=== PATIENT | male | born 1985 | race Caucasian/White ===

== ENCOUNTER 2017-09-23 06:32 | Day surgery (SDC) | payer OTHER, SELFPAY ==
[2017-09-22 14:23] VITALS: BMI 25.7
[2017-09-23 06:55] VITALS: BP 131/74; PULSE 75; RESP 18; TEMP 36.5; O2SAT 96
[2017-09-23 07:13] LABS: Basophils % 0.4 % (0.1-2.0); Eosinophils # 0.3 K/mm3 (0.0-0.4); Eosinophils % 2.4 % (0.1-12.0); Hemoglobin 15.9 g/dL (14.1-18.0); Lymphocytes # 2.4 K/mm3 (0.7-4.5); Lymphocytes % 22.8 K/mm3 (10-50); Mean Corpuscular HGB Conc 34.7 g/dL (31.8-35.4); Mean Corpuscular Hemoglobin 31.3 pg (27.0-31.2); Mean Corpuscular Volume 90.4 fl (80-94); Mean Platelet Volume 7.1 fl (7.4-10.4); Monocytes # 0.6 K/mm3 (0.1-1.0); Monocytes % 5.7 % (1.7-9.3); Neutrophils # 7.3 K/mm3 (1.8-7.8); Neutrophils % 68.7 % (37.0-80.0); Platelet Count 289 K/mm3 (142-424); Red Blood Count 5.09 M/mm3 (4.60-6.20); White Blood Count 10.6 K/mm3 (4.8-10.8)
--- NOTE | 2017-09-23 07:17 | HMH.ANESCL ---
[facility] Anesthesia Checklist - Patient Identification Patient Identification: Arm Band - Structural Data Admitted From: Home Planned Operative Procedure/s: excision left ear cyst Consent for Planned Operative Procedure(s) Verified: Yes Verified Documents: Surgical Consent, History and Physical - NPO Status Verified Time NPO: 00:00 - Additional verifications Anesthesia Reactions: No - Airway Assessment C-Spine Mobility Assessed: Yes (mp2) TMJ Mobility Assessed: Yes Dentition: Dentures-good fit (upper) - Neurological Assessment Level of Consciousness: Awake, Alert - Anesthesia Plan Anesthesia Risk discussed: Yes Anesthesia Plan: Verified ASA Class: II Anesthesia Type: MAC [facility] Anesthesia HX I have reviewed the patient's past medical history: Yes Medical History: Reports:: Anxiety Denies:: Cancer, Diabetes Mellitus Type 1, Diabetes Mellitus Type 2, Internal Pacemaker, MRSA, Seizures Other Medical History: Reports: Other (smoker 1ppd). Denies: Blood Transfusion Reaction Laterality Cases: Left: Other Other Surgeries: No: Pacemaker Amputation: No Fractures: No *Family Hx:: Cancer, Diabetes, Heart Attack, Stroke
[2017-09-23 08:00] VITALS: BP 107/64; BP 114/71; PULSE 81; RESP 20; TEMP 36.7; O2SAT 95; O2SAT 97
[2017-09-23 08:30] VITALS: BP 126/83; PULSE 76; RESP 18; TEMP 36.7; O2SAT 96
--- NOTE | 2017-09-23 17:21 | HMH.OPNOTE ---
Date of procedure: 09/23/17 Pre-op Diagnosis:: Epidermoid cyst 2cm left ear Post-op diagnosis:: same Procedure performed:: Excision of epidermoid cyst left ear with tissue rearrangement geometric plastic repair Surgeon:: Carlos Arcos MD TAPE FASTENER MACHINE OPERATOR:: Bk Elise Anesthesia: MAC Estimated blood loss (mL): 2 Operative findings:: cyst left ear Operative note:: The left ear was prepped and draped ,the perilesional area was infiltrated with 3 cc of 2% lidocaine containing epinephrine. The overlying skin was marked out in an ellipse. The dexter up was incised and then using tenotomy does scissors the cystic lesion was dissected and removed in toto. Bleeding was stopped with bipolar cautery, blood loss was less than 2 cc. A tissue rearrangement geometric plastic repair was done with 5-0 nylon sutures. A Dermabond dressing was applied and the patient was sent to recovery in good general condition. Condition: stable Disposition: same day Complications:: none
--- NOTE | 2017-09-23 17:24 | P.OP_ITS ---
Date of procedure: 09/23/17 Pre-op Diagnosis:: Epidermoid cyst 2cm left ear Post-op diagnosis:: same Procedure performed:: Excision of epidermoid cyst left ear with tissue rearrangement geometric plastic repair Surgeon:: Carlos Arcos MD MALT LOADER:: Bk Elise Anesthesia: MAC Estimated blood loss (mL): 2 Operative findings:: cyst left ear Operative note:: The left ear was prepped and draped ,the perilesional area was infiltrated with 3 cc of 2% lidocaine containing epinephrine. The overlying skin was marked out in an ellipse. The dexter up was incised and then using tenotomy does scissors the cystic lesion was dissected and removed in toto. Bleeding was stopped with bipolar cautery, blood loss was less than 2 cc. A tissue rearrangement geometric plastic repair was done with 5-0 nylon sutures. A Dermabond dressing was applied and the patient was sent to recovery in good general condition. Condition: stable Disposition: same day Complications:: none
== END 2017-09-23 08:30 | disposition home or self-care (01) ==
LOC: OR 06:35
PROVIDERS: Family Provider Family Medicine; PCP Family Medicine; Visit Provider Otolaryngology
PROC: (CPT 14060; principal; 2017-09-23 08:00)
DX: L72.8 Other follicular cysts of the skin and subcutaneous tissue (principal)
CPT/HCPCS: 14060; 85025; 93005; 96374; 96375

== ENCOUNTER → 2018-11-02 13:59 | Outpatient (CLI) | payer OTHER, SELFPAY ==
[2018-11-02 14:18] LABS: Basophils % 0.6 % (0.1-2.0); Eosinophils # 0.1 K/mm3 (0.0-0.4); Eosinophils % 1.2 % (0.1-12.0); Hematocrit 44.5 % (42.0-52.0); Hemoglobin 15.6 g/dL (14.1-18.0); Lymphocytes # 2.4 K/mm3 (0.7-4.5); Lymphocytes % 31.9 % (10-50); Mean Corpuscular HGB Conc 35.1 g/dL (31.8-35.4); Mean Corpuscular Hemoglobin 30.9 pg (27.0-31.2); Mean Corpuscular Volume 88.2 fl (80-94); Mean Platelet Volume 6.6 fl (7.4-10.4); Monocytes # 0.3 K/mm3 (0.1-1.0); Monocytes % 4.2 % (1.7-9.3); Neutrophils # 4.6 K/mm3 (1.8-7.8); Platelet Count 322 K/mm3 (142-424); Red Blood Count 5.05 M/mm3 (4.60-6.20); White Blood Count 7.3 K/mm3 (4.8-10.8)
[2018-11-02 14:44] LABS: Alanine Aminotransferase 71 U/L (12-78); Albumin Level 4.7 gm/dL (3.4-5.0); Albumin/Globulin Ratio 1.2 (1.1-1.8); Alkaline Phosphatase 80 U/L (46-116); Anion Gap 15.5 mEq/L (5-15); Aspartate Amino Transferase 23 U/L (15-37); Bilirubin,Total 1.2 mg/dL (0.2-1.0); Blood Urea Nitrogen 15 mg/dL (7-18); CKMB Relative Index 0.3 U/L (0-4.0); Calcium 9.4 mg/dL (8.5-10.1); Carbon Dioxide 28 mmol/L (21.0-32.0); Chloride 101 mmol/L (98-107); Creatine Kinase 190 U/L (39-308); Creatine Kinase MB 0.6 ng/ml (0.0-3.6); Creatinine,Serum 0.83 mg/dL (0.70-1.30); Estimated Glomerular Filt Rate 105 ml/min (>60); GFR (African American) 128 ML/MIN (>60); Globulin 3.9 gm/dl (1.3-3.2); Glucose 85 mg/dL (74-106); Potassium 3.5 mmoL/L (3.5-5.1); Sodium 141 mmol/L (136-145); Thyroid Stimulating Hormone 1.84 uIU/ml (0.358-3.740); Total Protein,Serum 8.6 gm/dL (6.4-8.2); Troponin I < 0.02 ng/ml (0.00-0.06)
[2018-11-04 18:09] LABS: Vitamin B12 706 pg/mL (232-1245); Vitamin D 25 Hydroxy 19.6 ng/mL (30.0-100.0)
== END ==
PROVIDERS: PCP Family Medicine; Visit Provider Physician Assistant
DX: R07.9 Chest pain, unspecified (principal); F41.1 Generalized anxiety disorder
CPT/HCPCS: 36415; 80053; 82550; 82553; 82607; 82652; 84443; 84484; 85025; 93005

== ENCOUNTER → 2019-07-18 09:16 | Outpatient (CLI) | payer OTHER, SELFPAY ==
--- NOTE | 2019-07-18 | CA_ITS ---
APPROVED REPORT Exam: Exercise Treadmill Technologist: Emmanuelle Morales Ht: 5 ft 3 in Wt: 150 lbs BSA: 1.71 m2 HR: 65 bpm BP: 124/82 mmHg Indications: Chest pain Medical History Medications: Metoprolol,,,,, Lexapro,,,,, Stress Test Details Test: Rashi HR Resting HR: 76 bpm Max Heart Rate (APMHR): 185 bpm Max HR Achieved: 159 bpm Target HR (85% APMHR): 157 bpm % of APMHR: 85 Recovery HR: 91 bpm BP Resting BP: 124.0/82.0 mmHg Max BP: 182.0/76.0 mmHg Recovery BP: 145.0/91.0 mmHg ECG Clinical Exercise duration: 09:24 min Highest Stage Achieved: Exercise capacity: 10.1 METs Stress ECG Conclusion Resting ECG: Normal sinus rhythm, right axis deviation, voltage criteria for LVH. Patient exercised 9:24 on Rashi protocol. Test stopped due to shortness of air, fatigue. Symptoms: Atypical, sharp, right sided axillary pain during exercise. Arrhythmias/Ectopy: Rare PVC ST-T Changes: [address] depression inferiorly and 0.5 mm laterally. Conclusion: Equivocal EKG changes with atypical chest pain. GXT only (no imaging). Test Summary REST . . . . . . . Sitting REST . . . . . . . Standing REST 03:59 0.0 0.0 76 . 124/ 82 . . Stage 1 01:00 10.0 1.7 103 . . . . Stage 1 02:00 10.0 1.7 111 . . . . Stage 1 03:00 10.0 1.7 117 . 156/ 80 . . Stage 2 01:00 12.0 2.5 124 . . . . Stage 2 02:00 12.0 2.5 134 . . . . Stage 2 03:00 12.0 2.5 133 . 170/ 74 . . Stage 3 . . . . . . . Shortness of Breath Stage 3 01:00 14.0 3.4 140 . . . . Stage 3 02:00 14.0 3.4 147 . . . . Stage 3 03:00 14.0 3.4 151 . 182/ 76 . . Stage 4 00:24 16.0 4.2 156 . . . Stop exercise at 09:24 RECOVERY 01:00 0.0 0.0 133 . 160/ 80 . . RECOVERY 02:00 0.0 0.0 103 . 160/ 80 . . RECOVERY 03:00 0.0 0.0 103 . 171/ 92 . . RECOVERY 04:00 0.0 0.0 98 . 162/ 88 . . RECOVERY 05:00 0.0 0.0 94 . 151/ 88 . . RECOVERY 06:00 0.0 0.0 92 . 151/ 88 . . RECOVERY 07:00 0.0 0.0 91 . 145/ 91 . . RECOVERY 07:23 0.0 0.0 94 . 145/ 91 . . Electronically signed by : Bonifacio Colon, 07/19/2019 09:17:11
--- NOTE | 2019-07-18 09:52 | CA_ITS ---
APPROVED REPORT EXAM: Comprehensive 2D, Doppler, and color-flow Echocardiogram Electric Knife Operator: Nena Anderson RDCS Ht: 5 ft 3 in Wt: 150lbs BSA: 1.71 BP: 125/82 mmHg Indications: Chest Pain 2D Dimensions LVOT 1.89 cm (M/F) 1.5-2.5 M-Mode Dimensions RVDd 2.44 cm (0.9-2.6) LVDd 4.93 cm (3.5-5.7) LVDs 3.48 cm (3.5-5.7) IVSd 0.84 cm (0.6-1.1) PWd 0.67 cm (0.6-1.1) EF (Teich) 56.10% FS 29.40% EDV (Teich) 114.40 mL ESV (Teich) 50.20 mL LV Diastology E/A Ratio 0.54 Mitral Valve MV A Velocity 47.00 (40-130 cm/s) Left Ventricle Left atrium is normal size, left ventricle is normal size, mild concentric left ventricular hypertrophy, visually estimated ejection fraction 55% with no regional wall motion abnormality. Diastolic parameters are within normal range. Right Ventricle Right atrium and right ventricular normal size and contractility. Aortic Valve Aortic valve is grossly normal, there is no aortic stenosis aortic insufficiency. Mitral Valve Mitral valve is grossly normal, there is mild mitral regurgitation. Tricuspid Valve Tricuspid valve is grossly normal, there is mild tricuspid regurgitation. Pulmonic Valve Pulmonic valve is poorly visualized. Great Vessels Aortic root is normal size. Pericardium No significant pericardial effusion noted. Conclusion 1. Normal left ventricular size, preserved left ventricular systolic function, visually estimated ejection fraction 55% with no regional wall motion abnormality, diastolic parameters are within normal range. 2. No significant pericardial effusion noted. Electronically signed by : Junior Mills, 07/20/2019 13:10:16
== END ==
PROVIDERS: PCP Family Medicine; Visit Provider Physician Assistant
DX: R07.9 Chest pain, unspecified (principal)
CPT/HCPCS: 93017; 93306

== ENCOUNTER 2024-04-19 07:56 | Outpatient (RCR) | payer BC, SELFPAY ==
--- NOTE | 2024-04-19 08:48 | HMH.PTOPEV ---
PT Outpatient Evaluation Rehab PT Outpatient Evaluation Start: 04/19/24 08:35 Freq: Status: Active Protocol: Document 04/19/24 08:35 PHORNE (Rec: 04/19/24 08:48 PHORNE [id number]) E-signed By Francesco Menendez, PT Outpatient Therapy Subjective History Subjective History This is the initial PT eval for Duoglas Joy, 38 yowm who presents with c/o vertigo x ~ 3-4 wks. He reports insidious onset of symptoms and his vertigo symptoms last for hours at a time in all positions and are associated with nausea, loss of balance, and dizziness. He reports having 2 rounds of oral steroid meds, 1 round of oral abx, and is continuing to take meclizine as prescribed. He states to medication has helped, but his symptoms persist. 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 He reports NO hx of seasonal allergies, HTN, or cardiac issues. New diagnosis of cancer in past 12 No months? Chief Complaint Other Balance Eval Oculomotor Gaze Oculomotor Gaze Nml: Vergence Saccades Cover/Uncover Cross Cover Abn: Smooth Pursuit VOR Cancellation Miscellaneous Dx PT Eval Objective Objective Pt presents with increased symptoms of vertigo to his L side with smooth pursuit, VOR cancellation, and lateral visual tracking testing. 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 Petra- Hallpike testing deferred at this time due to increased symptoms of vertigo from occulomotor testing and symptoms denote this condition is very unlikely to be BPPV. Outpatient Therapy Assessment Impairments Problems/Impairmments Impaired Balance Prognosis Rehab Potential Good Comment Signs and symptoms consistent with L UVH. Skilled therapy is indicated to reduce vertigo symptoms and return pt to PLOF . Clinical Impression Consistent with Diagnosis No Consistent with Likely L UVH Short Term Goals Number of Weeks 2 Improve Balance Yes: Minimal dizziness with prolonged ambulation Improve Self Care/Self Management Yes: Minimal vertigo with symotoms < 1hr Chcf Goals Number of Weeks 4 Improve Balance Yes: No dizziness with prolonged head movements to L side Improve Self Care/Self Management Yes: No vertigo with head movements in any position. Outpatient Therapy Plan of Care Treatment Plan May Include Therapeutic Exercise Including Home Yes Exercise Program Manual Therapy Techniques Yes Neuromuscular Re-education Yes Therapeutic Activities to Return to Yes Previous Functional/Work Level ADL/Self Care Education Yes Eval/Re-Eval Yes Frequency Times per week 1-2 Duration Number of Weeks 3-4 Addendums This patient is a candidate for social No or vocational rehab? Patient/Guardian verbally acknowledges Yes understanding of treatment program and consents to further treatment? Patient/Guardian verbally acknowledges Yes understanding of diagnosis, prognosis and goals for treatment? Eval Complexity PT Charges 48468 - High Complexity Shoulder/Elbow Eval Shoulder Objective Measurements Elbow Objective Measurements PHYSICIAN CERTIFICATION: I certify the specified therapy services for Douglas Joy are required, authorized, and reviewed every 30 days.
== END 2024-04-19 07:59 | disposition home or self-care (01) ==
LOC: PT 07:56
PROVIDERS: Visit Provider Physician Assistant
DX: H81.12 Benign paroxysmal vertigo, left ear (principal)
CPT/HCPCS: 97163